=== PATIENT | male | born 1980 | race Two or more races ===

== ENCOUNTER 2024-09-08 14:47 | Outpatient (AMB) | payer MEDICAID, SELFPAY ==
[2024-09-08 14:52] VITALS: BP 151/78; PULSE 93; RESP 19; TEMP 36.6; O2SAT 96
--- NOTE | 2024-09-08 14:52 | ACNOTE_ITS ---
Vital Signs 09/08/24 14:52 Weight 86.296 kg Weight Measurement Method Standing Scale BP 151/78 H Blood Pressure Source Automatic Cuff Blood Pressure Location Left Upper Arm Position Sitting Respiration 19 Pulse 93 Pulse Source Monitor Temp 97.9 F Temp Source Oral Pulse Oximetry (%) 96 Oxygen Delivery Method Room Air Allergies/Meds Allergies & Medications Allergies No Known Allergies Allergy (Verified 09/14/24 14:29) Medication Reconciliation blood sugar diagnostic (Blood Glucose Test strips) #50 ea 04/03/24 [Rx Confirmed 09/14/24] blood-glucose meter #1 ea 04/03/24 [Rx Confirmed 09/14/24] lancets 28 gauge #100 ea 04/03/24 [Rx Confirmed 09/14/24] pantoprazole 40 mg tablet,delayed release 40 mg PO QDAY 30 days #30 tabs 07/20/24 [Rx Confirmed 09/14/24] thiamine HCl (vitamin B1) 100 mg tablet 100 mg PO QDAY #30 tabs 07/20/24 [Rx Confirmed 09/14/24] metformin 1,000 mg tablet 1,000 mg PO BID 30 days #60 tabs 09/08/24 [Rx Confirmed 09/14/24] MA Intake Visit Data Collection New Patient or Established: Established Patient (seen at [facility] within 3 years) Seen by Clinical Staff ONLY (RN/MA): No Pain Present Currently: No Pain scale:: 0 Pain Scale Used: Rivera-Dominguez/Numerical PCP or OBGYN visit in last 3 months: Yes Smoking Status Smoking Status: Former smoker Immunization / Flu Flu Vaccine in the Last 12 Months: No Flu Vaccine Exclusion Criteria: No Exclusion Criteria Past Medical History Past Medical History NEUROLOGIC: Positive Seizures (one time (2 years ago)); Negative Neurological Disorders CARDIAC: Negative Cardiac Disorders, Angina, Atherosclerotic Heart Disease, Aneurysm or Congestive Heart Failure RESPIRATORY: Negative Chronic Obstructive Pulmonary Disease (COPD) GASTROINTESTINAL: Positive Gastrointestinal Bleed GENITOURINARY: Negative Genitourinary Disorders or Renal Disease REPRODUCTIVE: Negative Fibroids ENDOCRINE: Positive Diabetes Mellitus Type 2; Negative Diabetes Mellitus Type 1 HEMATOLOGIC: Negative Blood Disorders PSYCHO/SOCIAL: Negative Depression or Anxiety OTHER HISTORY: Positive Hospitalization and Blood Transfusions; Negative Autoimmune Disease, Blood Transfusion Reaction, Anesthesia Reactions or Cancer Family History FAMILY HISTORY: Negative Family Respiratory Disorders or Family Cardiac Disorders Surgical History SURGICAL: Negative Cardiac Surgery, Endocrine Surgery, Thyroidectomy, Ear Surgery, Abdominal Surgery or Nephrectomy Social History SMOKING STATUS: Smoking status: Former smoker ALCOHOL: Alcohol Intake: Current ALCOHOL FREQUENCY: Alcohol Intake Frequency: 3 or More Drinks per Day HOUSING: Housing: House LIVES WITH: Lives With: Significant Other Patient Portal Questionaires Social History Living Situation History Housing: House Tobacco History Smoking Status: Former smoker Alcohol History Alcohol Intake: Current Alcohol Intake Frequency: 3 or More Drinks per Day Alcohol Intake Frequency Other:: 8 Review of Systems Report any current symptoms Only answer those that you have currently: Past Medical History Past Medical History Have you ever been diagnosed with any of the following: Neurological Problems Seizures: Yes (one time (2 years ago)) Cardiology Problems Angina: No Atherosclerotic Heart Disease: No Aneurysm: No Congestive Heart Failure: No Respiratory Problems Chronic Obstructive Pulmonary Disease (COPD): No Stomache/Intestinal Problems Gastrointestinal Bleed: Yes Genital/Urinary Problems Renal Disease: No Reproductive Problems Fibroids: No Endocrine Problems Diabetes Mellitus Type 1: No Diabetes Mellitus Type 2: Yes Psychologic Problems Depression: No Anxiety: No Other Problems Hospitalization: Yes Autoimmune Disease: No Blood Transfusions: Yes Blood Transfusion Reaction: No Anesthesia Reactions: No Cancer: No Surgical History Thyroidectomy: No History of Present Illness HPI Narrative 44 yo male with PMH of previous alcohol abuse disorder, last drink months ago, GI bleed & blood loss anemia, now resolved, and DM2 on metformin who presented to clinic for medication refill and was noted to have high blood pressure 151/78 reading today, repeat 145 systolic. Patient was advised to check it during 3 consequtive days at home and we will re-evaluate. Phone visit scheduled next week with results. Review of Systems Review of Systems Systems Reviewed: All systems reviewed, normal except as documented Objective/Exam Narrative Physical exam: GENERAL: Awake, alert and oriented. No acute distress. HEENT: Normocephalic, atraumatic and nontender.? Pupils are equal and reactive to light and accommodation.? Oral mucosa moist. NECK: Supple without adenopathy. Traquea midline. Nontender, carotid pulse 2+ bilaterally without bruits, no JVD.? CHEST: Heart rate and rythm normal, no murmurs, gallops auscultated. S1 & 2 normal insensity. Nontender on palpation, no deformity and no crepitus. LUNGS: Lung sounds are clear.? No wheezing, rales or ronchi.? No intercostal subcostal retraction. Room air ABDOMEN: Soft,symmetric , nontender, no guarding or rebound tenderness. No abnormal masses palpated.? No pulsatile masses or bruits.? Bowel sounds are normoactive in all 4 quadrants. EXTREMITIES: Nontender.? No pitting edema.? No cyanosis.? Patient is able to move all 4 extremities. SKIN: No rashes noted. NEURO:? Cranial nerves intact.? There is no focalization.? GCS is 15. Assessment & Plan Diagnosis / Problem List (1) Elevated blood pressure reading: Status: Acute Assessment & Plan: Noted to have high blood pressure 151/78 reading today, repeat 145 systolic. Patient was advised to check it during 3 consequtive days at home and we will re-evaluate. Phone visit scheduled next week with results. (2) Diabetes mellitus: Status: Acute Qualifiers: Diabetes mellitus complication status: without complication Diabetes mellitus terminal block assembler insulin use: without terminal block assembler use Diabetes mellitus type: type 2 Qualified Code(s): E11.9 - Type 2 diabetes mellitus without complications Plan: DM2 on metformin, meds refilled Additional Assessment Attending note: I, Joe Martinez MD, attest that I was physically present for the baer portions of the service and evaluated the patient with the resident and I reviewed and discussed the case with the resident and agree with the resident's findings and plans of care as documented above. Follow-up visit. Diet, exercise, footcare, eye care reviewed. Needed refills provided today. Note made of elevated blood pressure reading. We will have patient check readings at home and review in 1 week. Joe Martinez MD Physician Billing Established Patient Established Patient: E/M Level 3-CPT 84867 Office Procedures [facility] Level of Care Nursing/Assessment Patient Status: Established Patient Nursing Assessment/Reassessment: Medication Reconciliation, Update PMH in EMR and Vital Signs Coordination of Care: Complex Care and Chronic Disease 1-5, Education Complex Pt/Fam and Staff clarify orders Established Patient Charge Established Patient Point Assignment: 85 Established Patient Point Charge: EP Level 3 (80-115)
== END 2024-09-08 15:14 | disposition home or self-care (01) ==
LOC: HODAHC 14:47
PROVIDERS: PCP Student in an Organized Health Care Education/Training Program; Referring Provider Student in an Organized Health Care Education/Training Program; Supervising Provider Internal Medicine; Visit Provider Student in an Organized Health Care Education/Training Program
DX: R03.0 Elevated blood-pressure reading, without diagnosis of hypertension (principal); E11.9 Type 2 diabetes mellitus without complications; Z79.84 Long term (current) use of oral hypoglycemic drugs
CPT/HCPCS: 99213; G0463

== ENCOUNTER 2024-09-14 14:28 | Outpatient (AMB) | payer MEDICAID, SELFPAY ==
--- NOTE | 2024-09-14 14:29 | PD.RESCLINIC ---
Allergies/Meds Allergies & Medications Allergies No Known Allergies Allergy (Verified 09/14/24 14:29) Medication Reconciliation blood sugar diagnostic (Blood Glucose Test strips) #50 ea 04/03/24 [Rx Confirmed 09/14/24] blood-glucose meter #1 ea 04/03/24 [Rx Confirmed 09/14/24] lancets 28 gauge #100 ea 04/03/24 [Rx Confirmed 09/14/24] pantoprazole 40 mg tablet,delayed release 40 mg PO QDAY 30 days #30 tabs 07/20/24 [Rx Confirmed 09/14/24] thiamine HCl (vitamin B1) 100 mg tablet 100 mg PO QDAY #30 tabs 07/20/24 [Rx Confirmed 09/14/24] metformin 1,000 mg tablet 1,000 mg PO BID 30 days #60 tabs 09/08/24 [Rx Confirmed 09/14/24] MA Intake Visit Data Collection New Patient or Established: Established Patient (seen at [facility] within 3 years) Seen by Clinical Staff ONLY (RN/MA): No Pain Present Currently: No Pain scale:: 0 Pain Scale Used: Rivera-Dominguez/Numerical PCP or OBGYN visit in last 3 months: Yes Smoking Status Smoking Status: Former smoker For Televisit only Telemed Video/Phone Visit: Yes Verbal consent obtained for Telemed visit?: Yes Verbal Consent witness name: JULIETA Telemed Video/Phone visit w/Clinical Staff: 21-30 min Immunization / Flu Flu Vaccine in the Last 12 Months: No Flu Vaccine Exclusion Criteria: No Exclusion Criteria Past Medical History Past Medical History NEUROLOGIC: Positive Seizures (one time (2 years ago)); Negative Neurological Disorders CARDIAC: Negative Cardiac Disorders, Angina, Atherosclerotic Heart Disease, Aneurysm or Congestive Heart Failure RESPIRATORY: Negative Chronic Obstructive Pulmonary Disease (COPD) GASTROINTESTINAL: Positive Gastrointestinal Bleed GENITOURINARY: Negative Genitourinary Disorders or Renal Disease REPRODUCTIVE: Negative Fibroids ENDOCRINE: Positive Diabetes Mellitus Type 2; Negative Diabetes Mellitus Type 1 HEMATOLOGIC: Negative Blood Disorders PSYCHO/SOCIAL: Negative Depression or Anxiety OTHER HISTORY: Positive Hospitalization and Blood Transfusions; Negative Autoimmune Disease, Blood Transfusion Reaction, Anesthesia Reactions or Cancer Family History FAMILY HISTORY: Negative Family Respiratory Disorders or Family Cardiac Disorders Surgical History SURGICAL: Negative Cardiac Surgery, Endocrine Surgery, Thyroidectomy, Ear Surgery, Abdominal Surgery or Nephrectomy Social History SMOKING STATUS: Smoking status: Former smoker ALCOHOL: Alcohol Intake: Current ALCOHOL FREQUENCY: Alcohol Intake Frequency: 3 or More Drinks per Day HOUSING: Housing: House LIVES WITH: Lives With: Significant Other Patient Portal Questionaires Social History Living Situation History Housing: House Tobacco History Smoking Status: Former smoker Alcohol History Alcohol Intake: Current Alcohol Intake Frequency: 3 or More Drinks per Day Alcohol Intake Frequency Other:: 8 Review of Systems Report any current symptoms Only answer those that you have currently: Past Medical History Past Medical History Have you ever been diagnosed with any of the following: Neurological Problems Seizures: Yes (one time (2 years ago)) Cardiology Problems Angina: No Atherosclerotic Heart Disease: No Aneurysm: No Congestive Heart Failure: No Respiratory Problems Chronic Obstructive Pulmonary Disease (COPD): No Stomache/Intestinal Problems Gastrointestinal Bleed: Yes Genital/Urinary Problems Renal Disease: No Reproductive Problems Fibroids: No Endocrine Problems Diabetes Mellitus Type 1: No Diabetes Mellitus Type 2: Yes Psychologic Problems Depression: No Anxiety: No Other Problems Hospitalization: Yes Autoimmune Disease: No Blood Transfusions: Yes Blood Transfusion Reaction: No Anesthesia Reactions: No Cancer: No Surgical History Thyroidectomy: No History of Present Illness HPI Narrative 44 yo male with PMH of previous alcohol abuse disorder, last drink months ago, GI bleed & blood loss anemia, now resolved, and DM2 on metformin who presented to clinic for medication refill last week and was noted to have high blood pressure 151/78, repeat 145 systolic. Patient was advised to check it during 3 consequtive days at home and we would re-evaluate if we would need to start antihypertensive. Patient states 3 consequtive checks where systolic on the mid 130s and the highest was 140. Patient advised on lifestyle changes and we will re-evaluate in october if we need to add low dose antihypertensive. Review of Systems Review of Systems Systems Reviewed: All systems reviewed, normal except as documented Assessment & Plan Diagnosis / Problem List (1) Elevated blood pressure reading: Status: Acute Assessment & Plan: 44 yo male with PMH of previous alcohol abuse disorder, last drink months ago, GI bleed & blood loss anemia, now resolved, and DM2 on metformin who presented to clinic for medication refill last week and was noted to have high blood pressure 151/78, repeat 145 systolic. Patient was advised to check it during 3 consequtive days at home and we would re-evaluate if we would need to start antihypertensive. Patient states 3 consequtive checks where systolic on the mid 130s and the highest was 140. Patient advised on lifestyle changes and we will re-evaluate in october if we need to add low dose antihypertensive. Plan 44 yo male with PMH of previous alcohol abuse disorder, last drink months ago, GI bleed & blood loss anemia, now resolved, and DM2 on metformin who presented to clinic for medication refill last week and was noted to have high blood pressure 151/78, repeat 145 systolic. Patient was advised to check it during 3 consequtive days at home and we would re-evaluate if we would need to start antihypertensive. Patient states 3 consequtive checks where systolic on the mid 130s and the highest was 140. Patient advised on lifestyle changes and we will re-evaluate in october if we need to add low dose antihypertensive. Additional Assessment Attending note: I, Joe Martinez MD, attest that I was physically present for the baer portions of the service completed via telehealth, and I reviewed and discussed the case with the resident and agree with the resident's plans of care as documented above. Follow-up from prior visit. Home blood pressure readings reviewed, systolics were in the mid 130s with the highest reading of 140. At this point, we will hold off on initiating an antihypertensive. Advised on lifestyle changes. Has continued to abstain from alcohol. Joe Martinez MD Physician Billing Established Patient Established Patient: E/M Level 2-CPT 95011 Office Procedures [facility] Level of Care Nursing/Assessment Patient Status: Established Patient Nursing Assessment/Reassessment: Medication Reconciliation and Update PMH in EMR Coordination of Care: Complex Care and Chronic Disease 1-5, Education Complex Pt/Fam and Staff clarify orders Established Patient Charge Established Patient Point Assignment: 70 Telehealth Telemed Phone/Video with patient at home & Dr,PA,SUPERVISOR COMPRESSED YEAST: Yes
== END 2024-09-14 15:20 | disposition home or self-care (01) ==
LOC: HODAHC 14:29
PROVIDERS: PCP Student in an Organized Health Care Education/Training Program; Referring Provider Student in an Organized Health Care Education/Training Program; Supervising Provider Internal Medicine; Visit Provider Student in an Organized Health Care Education/Training Program
DX: R03.0 Elevated blood-pressure reading, without diagnosis of hypertension (principal); E11.9 Type 2 diabetes mellitus without complications; Z79.84 Long term (current) use of oral hypoglycemic drugs
CPT/HCPCS: 99212; G0463